=== PATIENT | male | born 1960 | race African-American/Black ===

== ENCOUNTER 2018-09-24 09:23 | Emergency (ER) | payer OTHER, SELFPAY ==
[2018-09-24] MEDS ORDERED: Ketorolac Tromethamine 60 MG/2 ML VIAL ONE (09:44)
--- NOTE | 2018-09-24 10:30 | RAD ---
LUMBAR SPINE: Date: 09/24/18 HISTORY: Pain. COMPARISON: None. FINDINGS: Five lumbar-type vertebral bodies. Lumbar spine vertebral body height is maintained. There is no frac ture. Mild loss of disc space height and osteophyte formation at L4-L5. No spondylolisthesis or spond ylolysis. Though there is no loss of significant disc space height, there does appear to be some ante rior osteophyte formation at L3 and at L4. IMPRESSION: Mild degenerative change at L4-L5. POS: C
== END 2018-09-24 10:35 | disposition home or self-care (01) ==
LOC: NAV ERS 09:23
DX: M54.5 Low back pain (principal); F17.210 Nicotine dependence, cigarettes, uncomplicated
CPT/HCPCS: 72100; 96372; J1885

== ENCOUNTER 2018-11-23 09:32 | Emergency (ER) | payer SELFPAY ==
--- NOTE | 2018-11-23 10:29 | RAD ---
FRONTAL CHEST WITH 2 VIEWS LEFT RIBS: Date: 11/23/18 PROVIDED CLINICAL HISTORY: Left-sided chest pain status post injury. FINDINGS: The cardiac and mediastinal silhouette is within normal limits. The lungs appear clear. There is no p leural fluid or pneumothorax apparent. No evidence for displaced left-sided rib fracture. IMPRESSION: No evidence for an acute process. POS: [facility]
[2018-11-23] MEDS ORDERED: HYDROcodone/Acetaminophen 5/325 mg Tablet ONE (11:06)
== END 2018-11-23 11:50 | disposition home or self-care (01) ==
LOC: NAV ERS 09:32
DX: S20.212A Contusion of left front wall of thorax, initial encounter (principal); F17.210 Nicotine dependence, cigarettes, uncomplicated; W22.09XA Striking against other stationary object, initial encounter
CPT/HCPCS: 93005

== ENCOUNTER 2018-12-07 13:53 | Outpatient (CLI) | payer OTHER ==
--- NOTE | 2018-12-07 15:27 | RAD ---
LEFT KNEE 2 VIEWS: Date: 12/07/18 HISTORY: Pain and disability evaluation. COMPARISON: None. FINDINGS: Several metallic density foreign bodies in the soft tissues overlying the region of the knee. No acut e fracture or dislocation. Deformity of the proximal fibula. Evidence for some incomplete ossificatio n at the anterior tibial tubercle, probably residual from [place]-Schlatter's disease. IMPRESSION: Mild degenerative changes. No fracture or dislocation. POS: [facility]
--- NOTE | 2018-12-07 15:42 | RAD ---
LUMBAR SPINE THREE VIEWS: HISTORY: Disability evaluation. Low back pain. COMPARISON: 09/24/2018 FINDINGS: Scattered disk osteophytosis and facet arthrosis. No acute fracture, dislocation, or focal bone lesi on. IMPRESSION: Stable lumbar spondylosis. POS: [facility]
== END 2018-12-07 13:54 | disposition home or self-care (01) ==
LOC: NAV RAD 13:53
PROVIDERS: ATTEND Family Medicine
DX: M25.562 Pain in left knee (principal); M54.5 Low back pain; M47.816 Spondylosis without myelopathy or radiculopathy, lumbar region; M17.12 Unilateral primary osteoarthritis, left knee
CPT/HCPCS: 72100

== ENCOUNTER 2023-06-11 01:50 | Emergency (ER) | payer OTHER, SELFPAY | END 2023-06-11 02:34 | LOC: NAV ERS 01:50 | DX: Z02.89 Encounter for other administrative examinations (principal); F17.210 Nicotine dependence, cigarettes, uncomplicated | CPT/HCPCS: 99282 ==